=== PATIENT | female | born 1980 | race Caucasian/White ===

== ENCOUNTER 2018-11-13 18:08 | Emergency (ER) | payer OTHER ==
[~2018-11-13] VITALS: Ht 165.1 cm; Wt 70.2 kg
[2018-11-13 18:12] VITALS: BP 148/99
[2018-11-13] MEDS ORDERED: FLUT9.9S NAS (18:32)
[2018-11-13] MEDS ORDERED: MONT10TA6 PO (18:32)
[2018-11-13] MEDS ORDERED: QUET100T4 PO (18:32)
[2018-11-13] MEDS ORDERED: PANT40TA3 PO (18:32)
[2018-11-13] MEDS ORDERED: MILN50TA PO (18:32)
[2018-11-13] MEDS ORDERED: LAMO100T5 PO (18:32)
--- NOTE | 2018-11-13 18:32 | NUR ---
PT ARRIVED TO ROOM 6 AMBULATORY. PT C/O BILATERAL CHOE LACERATIONS, LEFT GREATER THAN RIGHT. PT STATES SHE WAS WALKING AROUND A CART AND WALKED TOO FAST AND "CAUGHT THE CORNER." PT AAO X 4, VSS, NAD, NO PAIN AT THIS TIME.
--- NOTE | 2018-11-13 18:48 | NUR ---
REPORT RECEIVED FROM MIRANDA HWANG.
[2018-11-13] MEDS ORDERED: LIDOCAINE-MPF 1%, 2ML ONE (19:05)
--- NOTE | 2018-11-13 19:11 | NUR ---
TDAP GIVEN PER EMAR. PT TOLERATED WELL.
[2018-11-13] MEDS ORDERED: DIPH,PERTUSS(ACELL),TET VAC/PF 0.5 ML IM-VACC ONE (19:30)
[2018-11-13] MEDS ORDERED: LIDOCAINE 1%, 10ML INFIL ONE (19:30)
--- NOTE | 2018-11-13 19:42 | NUR ---
PT GIVEN DC INSTRUCTIONS. PT'S AOX4. RESPS EVEN AND UNLABORED. NO ACUTE DISTRESS AT DC.
== END 2018-11-13 19:45 | disposition home or self-care (01) ==
LOC: ED 18:59
DX: S81.811A Laceration without foreign body, right lower leg, initial encounter (principal); S81.812A Laceration without foreign body, left lower leg, initial encounter; F17.200 Nicotine dependence, unspecified, uncomplicated; W22.8XXA Striking against or struck by other objects, initial encounter; Y93.89 Activity, other specified; Y92.69 Other specified industrial and construction area as the place of occurrence of the external cause; Y99.8 Other external cause status
CPT/HCPCS: 12031; 90471; 90715; 99285

== ENCOUNTER 2020-08-13 09:08 | Emergency (ER) | payer OTHER ==
[~2020-08-13] VITALS: Ht 165.1 cm; Wt 73.8 kg
[~2020-08-13 09:08] MED LIST: FLUT9.9S NAS; LAMO100T5 PO; MILN50TA PO; MONT10TA6 PO; PANT40TA3 PO; QUET100T4 PO
[2020-08-13] MEDS ORDERED: ASPIRIN 81 MG TABLET CHEW PO ONE (09:30)
[2020-08-13] MEDS ORDERED: ASPIRIN 81 MG TABLET CHEW ONE (09:31)
--- NOTE | 2020-08-13 09:40 | NUR ---
first contact with pt. pt c/o L sided cp radiating to L arm and neck since yesterday. pt stated "it's sharp and deep breathing makes it worse" pt denies any other symptoms. pt's aox4. resps even and unlabored. all monitors in place. call light within reach.
--- NOTE | 2020-08-13 09:42 | NUR ---
pt medicated per emar. pt tolerated well.
[2020-08-13 09:50] LABS: BASOPHILS % (AUTO) 1 % (0-1); EOSINOPHILS % (AUTO) 1 % (1-7); LYMPHOCYTES % (AUTO) 19 % (22-44); MEAN CORPUSCULAR HEMOGLOBIN 31.2 pg (27.0-34.8); MEAN PLATELET VOLUME 7.5 fL (7.4-10.4); MONOCYTES % (AUTO) 6 % (2-9); NEUTROPHILS % (AUTO) 74 % (42-75); PLATELET COUNT 247 x10^3/uL (130-400); RED BLOOD COUNT 4.47 x10^6/uL (3.82-5.3); RED CELL DISTRIBUTION WIDTH 14.2 % (9.6-15.2)
[2020-08-13 10:01] LABS: ALANINE AMINOTRANSFERASE 28 U/L (12-78); ALBUMIN 4.1 g/dL (3.4-5.0); ANION GAP 6 mmol/L (5-15); CALCIUM 8.9 mg/dL (8.5-10.1); CHLORIDE 110 mmol/L (98-107); CREATININE 0.82 mg/dL (0.55-1.02)
[2020-08-13 10:06] LABS: ALKALINE PHOSPHATASE 69 U/L (45-117); BILIRUBIN,TOTAL 0.8 mg/dL (0.2-1.0); TOTAL PROTEIN 7.3 g/dL (6.4-8.2); TROPONIN I < 0.015 ng/mL (0.000-0.045)
--- NOTE | 2020-08-13 11:19 | NUR ---
Report for meal break received from JAIDEN Lang and care assumed for break only. Pt sitting up in bed talking on phone and waiting on d/c paperwork from .
[2020-08-13] MEDS ORDERED: KETOROLAC 30 MG/1 ML IM ONE (11:30)
[2020-08-13] MEDS ORDERED: KETOROLAC 60 MG/2 ML ONE (11:31)
[2020-08-13 11:54] VITALS: BP 118/74
== END 2020-08-13 11:56 | disposition home or self-care (01) ==
LOC: ED 09:46
DX: R07.89 Other chest pain (principal); I10 Essential (primary) hypertension; J45.909 Unspecified asthma, uncomplicated; E78.5 Hyperlipidemia, unspecified
CPT/HCPCS: 36415; 71045; 80053; 83605; 83880; 84484; 85025; 85379; 93005; 99285; J1885